=== PATIENT | male | born 1980 | race Caucasian/White ===

== ENCOUNTER 2018-06-16 14:01 | Emergency (ER) | payer SELFPAY ==
[~2018-06-16] VITALS: Ht 177.8 cm; Wt 73.0 kg
[~2018-06-16 14:01] MED LIST: ACET-2178; AMANTADINE
[2018-06-16] MEDS ORDERED: MORPHINE SULFATE 4 MG/ML CPJ (NOT FOR IM USE) IV STA (14:54)
[2018-06-16] MEDS ORDERED: SODIUM CHLORIDE 0.9% 1,000 ML IV ONE (14:54)
[2018-06-16] MEDS ORDERED: ONDANSETRON HCL 4MG/2ML INJ IV STA (14:54)
[2018-06-16 15:22] LABS: CHLORIDE 106 mEq/L (98-107); PARTIAL THROMBOPLASTIN TIME 26.2 sec (23.4-31.0); PROTHROMBIN TIME 10.4 sec (9.1-11.1)
[2018-06-16 15:25] LABS: BASOPHILS % 0.7 % (0.0-2.0); EOSINOPHILS % 2.8 % (0.0-5.0); HEMATOCRIT. 47.6 % (42.0-52.0); HEMOGLOBIN. 16.5 g/dL (14.0-18.0); LYMPHOCYTES % 22.7 % (20.0-50.0); MEAN CORPUSCULAR VOLUME 86.8 fL (80.0-94.0); MEAN PLATELET VOLUME 10.7 fl (7.4-10.4); MONOCYTES % 6.8 % (2.0-8.0); PLATELET 184 x1000/uL (130-400); RED BLOOD CELL COUNT 5.49 mill/uL (4.7-6.1)
[2018-06-16] MEDS ORDERED: KCL 20MEQ/100ML PREMIX 100 ML IV ONE (16:00)
[2018-06-16] MEDS ORDERED: IOHEXOL-300 100 ML BOTTLE ONE ×2 (16:04→16:49)
[2018-06-16] MEDS ORDERED: DIATR MEGLU/DIATRIZOATE SOLN 30ML ONE (16:07)
[2018-06-16] MEDS ORDERED: MORPHINE SULFATE 4 MG/ML CPJ (NOT FOR IM USE) IV ONE (16:15)
[2018-06-16 16:22] LABS: CLARITY URINE CLEAR (CLEAR); COLOR URINE YELLOW (YELLOW); KETONES URINE 2+ (NEGATIVE); LEUKOCYTE ESTERASE URINE NEGATIVE (NEGATIVE); NITRITE URINE NEGATIVE (NEGATIVE); OCCULT BLOOD URINE NEGATIVE (NEGATIVE); PH URINE 8.5 (4.5-8.0); PROTEIN URINE NEGATIVE (NEGATIVE); SPECIFIC GRAVITY URINE 1.021 (1.005-1.030); UROBILINOGEN URINE 0.2 E.U./dL (0.2-1.0)
[2018-06-16 17:17] VITALS: BP 146/84
[2018-06-16] MEDS ORDERED: POTASSIUM CHLORIDE 20MEQ TABLET SR PO ONE (17:45)
[2018-06-16] MEDS ORDERED: FAMOTIDINE 20MG TABLET PO ONE (17:45)
[2018-06-16] MEDS ORDERED: MAGNESIUM/ALUMINUM HYDROXIDE/SIMETHICONE 30ML UDC PO ONE (17:45)
== END 2018-06-16 18:02 | disposition home or self-care (01) ==
LOC: ER 14:53
DX: R10.13 Epigastric pain (principal); E87.6 Hypokalemia; I25.2 Old myocardial infarction
CPT/HCPCS: 36415; 71045; 74177; 80053; 81003; 83690; 85025; 85610; 85730; 93005; 96365; 96375; 96376; 99285; J2270; J2405; J3480; J7030; J7040; Q9967; Q9963